=== PATIENT | female | born 1985 | race Caucasian/White ===

== ENCOUNTER 2018-10-08 10:42 | Emergency (ER) | payer MEDICAID ==
[~2018-10-08] VITALS: Ht 170.2 cm; Wt 68.0 kg
[2018-10-08 10:51] VITALS: BP 126/73; Ht 170.2 cm; Wt 68.0 kg
== END 2018-10-08 11:20 | disposition other institution (70) ==
LOC: ED 10:42
DX: Z02.89 Encounter for other administrative examinations (principal)

== ENCOUNTER 2018-10-08 10:42 | Emergency (ER) | payer OTHER | END 2018-10-08 11:20 | disposition other institution (70) | LOC: ED 10:42 | DX: Z02.89 Encounter for other administrative examinations (principal) ==